=== PATIENT | male | born 1990 | race Caucasian/White ===

== ENCOUNTER 2019-07-22 09:06 | Emergency (ER) | payer OTHER ==
[~2019-07-22] VITALS: Ht 165.1 cm; Wt 68.0 kg
[2019-07-22] MEDS ORDERED: AMOX-CLAV 875-1 EACH PO (12:31)
[2019-07-22] MEDS ORDERED: CORTISPORIN EAR10 M1 OPHT (12:31)
[2019-07-22] MEDS ORDERED: INTESTINEX680 M2 PO (12:32)
[2019-07-22] MEDS ORDERED: IBU600 MG PO (12:32)
== END 2019-07-22 12:59 ==
LOC: ER 09:06
DX: S01.322A Laceration with foreign body of left ear, initial encounter (principal); W45.8XXA Other foreign body or object entering through skin, initial encounter; Y93.89 Activity, other specified; Y92.832 Beach as the place of occurrence of the external cause; Y99.8 Other external cause status